=== PATIENT | male | born 1985 | race Caucasian/White ===

== ENCOUNTER 2022-06-04 12:03 | Emergency (ER) | payer OTHER, SELFPAY ==
[2022-06-04 12:16] VITALS: BP 142/86; PULSE 110; RESP 16; TEMP 37.6; O2SAT 97
--- NOTE | 2022-06-04 12:51 | ED.URI ---
HPI - URI/Sore Throat General Chief Complaint: Upper Respiratory Infection Stated Complaint: Congestion/Fever Time Seen by Provider: 06/04/22 12:51 Source: patient and RN notes reviewed Mode of arrival: ambulatory Limitations: no limitations History of Present Illness HPI Narrative: 37 year old male presented for complaints of headache, body aches, sinus pressure/congestion, cough, fever/chills. onset last night. Endorses and child tested positive for influenza. He denies shortness of breath, wheezing, nausea, vomiting, diarrhea. He has taken cough and cold medication. MD elicited complaint: cough Related Data Allergies Allergy/AdvReac Type Severity Reaction Status Date / Time No Known Allergies Allergy Mild Verified 06/04/22 12:31 Review of Systems Review of Systems: ROS per HPI Exam Narrative: GENERAL: Ill-appearing, nontoxic EYES: PERRLA, conjunctivae clear ENT: Mucous membranes moist. Left TM pearly weston with dull light reflex Right TM erythematous nontender; no tragal tenderness. Oropharynx erythematous without lesions or exudate, no drooling, no hoarseness, no trismus, uvula midline. No tripod positioning, muffled voice, soft palate or pharyngeal wall bulging NECK: Supple. No lymphadenopathy CHEST: Clear to auscultation, breath sounds equal. No wheezing, rhonchi, rales, or stridor. No respiratory distress, speaks in full sentences. HEART: Regular rate and rhythm. No murmur heard. SKIN: Warm, dry, no rash. NEURO: Alert and oriented x3. PSYCH: Normal mood and affect Course Course Emergency Course: Patient is aware of diagnosis, understands and agrees to treatment plan. Anticipatory guidance given. Patient agrees to follow-up as directed and is aware of reasons to seek care at the emergency department. Portions of this record may have been created with voice recognition software Level of Care: Express Care Visit Vital Signs Vital signs: Vital Signs Temperature 99.7 F H 06/04/22 12:16 Pulse Rate 110 H 06/04/22 12:16 Respiratory Rate 16 06/04/22 12:16 Blood Pressure 142/86 H 06/04/22 12:16 Pulse Oximetry 97 06/04/22 12:16 Oxygen Delivery Room Air 06/04/22 12:16 Temperature 99.7 F H 06/04/22 12:16 Pulse Rate 110 H 06/04/22 12:16 Respiratory Rate 16 06/04/22 12:16 Blood Pressure 142/86 H 06/04/22 12:16 Pulse Oximetry 97 06/04/22 12:16 Oxygen Delivery Room Air 06/04/22 12:16 reviewed MDM - URI/Sore Throat MDM Narrative Medical decision making narrative: influenza negative. Advised supportive measures and signs/symptoms to go to the ER. Pt is appropriate for outpt treatment and f/u. Differential Diagnosis Differential diagnosis: Likely upper respiratory infection, sinusitis and viral infection Lab Data Labs: Influenza A Screen Negative Reference Range: Negative Influenza B Screen Negative Reference Range: Negative Discharge Plan Discharge Clinical Impression: Viral infection Patient Disposition: Home, Self-Care Condition: Stable Instructions: Influenza (ED) Additional Instructions: You should avoid crowds/work until you are fever free for 24 hours without the use of fever reducing medications, or the symptoms are improved Rest. Drink plenty of fluids. Tylenol 1000mg every 8 hours as needed for pain/fever Recommend Flonase spray and Zyrtec or Benaryl for sinus pressure/congestion over the counter Cough syrup may cause drowsiness; avoid driving or take it at night time. Follow up with your primary care provider as needed in 1-2 weeks Go to the ER for worsening symptoms or concerns Prescriptions: New benzonatate 200 mg capsule 200 mg PO TID PRN (Reason: cough) Qty: 20 0RF Follow-up/Referrals: PHYSICIAN,DATA INTEGRITY CONSULTANT [Primary Care Provider] - Stand Alone Forms: Work/School Release IP Time of Dis
== END 2022-06-04 13:00 | disposition home or self-care (01) ==
PROVIDERS: Emergency Provider Nurse Practitioner Family
DX: B34.9 Viral infection, unspecified (principal)
CPT/HCPCS: 87804; 99203; G0463